=== PATIENT | female | born 1990 | race Caucasian/White ===

== ENCOUNTER 2017-05-08 07:20 | Inpatient (IN) | payer BC ==
[2017-05-08] MEDS ORDERED: Misoprostol 100 MCG Tab RECTAL PRN (10:13)
[2017-05-08] MEDS ORDERED: Misoprostol 25 MCG (1/4 of 100 MCG) Tab VAG ONE (10:19)
--- NOTE | 2017-05-08 11:38 | PCM.SN ---
- Free Text/Narrative Note: 26-year-old 40 weeks here for induction. Checked her cervix she's /- 3. With the patient's permission after discussing risk and benefits. I placed Cytotec posterior fornix. And consider starting Pitocin 4 hours.
[2017-05-08] MEDS ORDERED: Oxytocin/Normal Saline 10 UNIT/1,000 ML BAG IV SCH (16:15)
[2017-05-08] MEDS: Sodium Chloride 0.9% 10 ML Syringe FLUSH PRN ×2 (16:34→16:35)
[2017-05-08] MEDS: Lactated Ringers 1,000 ML IV SCH (16:34)
[2017-05-09] MEDS: Lactated Ringers 1,000 ML IV SCH ×4 (00:36→20:47)
[2017-05-09] MEDS ORDERED: Ampicillin 2 GM in Sodium Chloride 0.9% 100 ML IV ONE (07:14)
--- NOTE | 2017-05-09 09:13 | PCM.SN ---
- Free Text/Narrative Note: Cervix is 4 cm/80-90% effaced--2 with a bulging bag of membranes. Artificial rupture of membranes was done with clear fluid. Patient will continue on Pitocin and epidural when she is uncomfortable. Vaginal delivery anticipated. She is group B positive and ampicillin per protocols running IV.
[2017-05-09] MEDS ORDERED: FENTANYL EPIDUR ONE (09:15)
[2017-05-09] MEDS ORDERED: fentaNYL 100 MCG/2 ML SDV EPIDUR ONE (09:15)
[2017-05-09] MEDS ORDERED: ROPIVACAINE EPIDUR ONE (09:15)
[2017-05-09] MEDS ORDERED: diphenhydrAMINE 50 MG/ML SDV IVPUSH PRN (11:18)
[2017-05-09] MEDS ORDERED: ePHEDrine 50 MG/ML SDV IVPUSH PRN ×2 (11:18→19:41)
[2017-05-09] MEDS ORDERED: Naloxone 0.4 MG/ML SDV IVPUSH PRN ×3 (11:18→19:54)
[2017-05-09] MEDS ORDERED: Promethazine 25 MG/ML SDV IV PRN (11:18)
[2017-05-09] MEDS ORDERED: Naloxone 0.4 MG in Sodium Chloride 0.9% 100 ML IV PRN (11:18)
[2017-05-09] MEDS ORDERED: hydrOXYzine HCl 50 MG/ML SDV IM PRN ×2 (11:18)
[2017-05-09] MEDS ORDERED: Ondansetron 4 MG/2 ML SDV IVPUSH PRN ×2 (11:36→19:54)
[2017-05-09] MEDS ORDERED: Citric Acid/Sodium Citrate Solution 30 ML Cup PO ONE (18:21)
[2017-05-09] MEDS ORDERED: Scopolamine 1.5 MG Transdermal Patch TOP ONE (18:23)
--- NOTE | 2017-05-09 18:26 | PCM.SN ---
- Free Text/Narrative Note: Patient has been pushing for 3 hours. Patient was tired and there is late decelerations so we decided with the patient's permission to use the mighty Vac. Skin benefits explained. Estimation weight of the baby's. I tried to pull the baby's to several contractions and the head which is go right back up and there continue to be late decelerations. It appeared to be futile so we will call Dr. Perez and the surgical crew and proceed with a .
[2017-05-09] MEDS ORDERED: Scopolamine 1.5 MG Transdermal Patch ONE (18:31)
[2017-05-09] MEDS ORDERED: Citric Acid/Sodium Citrate Solution 30 ML Cup ONE (18:32)
--- NOTE | 2017-05-09 18:40 | PCM.HP ---
H&P History of Present Illness - General Date of Service: 05/09/17 Admit Problem/Dx: Admission Diagnosis/Problem Admission Diagnosis/Problem Source of Information: Patient History Limitations: Reports: No Limitations - History of Present Illness Initial Comments - Free Text/Narative: This a 26-year-old EDC 05/08/17. Came in for induction had Cytotec yesterday than Pitocin. The doctor was ill so we stop Pitocin at 10 PM and restart at 6 AM this morning. She went to complete and then she was not able to push the baby out. We tried the mighty Vac and were not able to get the baby out. She has no concerns today. She has had her wisdom tooth appears had no bleeding dyscrasias. Uterine Pain Score (Numeric/FACES): 2 - Related Data Allergies/Adverse Reactions: Allergies Allergy/AdvReac Type Severity Reaction Status Date / Time No Known Allergies Allergy Verified 05/08/17 16:15 Home Medications: Home Meds Pnv No.95/Ferrous Fum/Folic AC [ Multivitamin Tablet] 1 each PO DAILY [History] Past Medical History PER DIEM PHYSICAL THERAPIST ASSISTANT History: Reports: Psychiatric History: Reports: Depression Other Psychiatric History: has been on meds in past approx 5 yrs ago - Past Surgical History HEENT Surgical History: Reports: Oral Surgery Social & Family History - Family History Family Medical History: Noncontributory - Tobacco Use Smoking Status *Q: Never Smoker Second Hand Smoke Exposure: No - Caffeine Use Caffeine Use: Reports: Coffee, Soda - Recreational Drug Use Recreational Drug Use: No H&P Review of Systems - Review of Systems: Review Of Systems: See Below General: Reports: No Symptoms HEENT: Reports: No Symptoms Pulmonary: Reports: No Symptoms Cardiovascular: Reports: No Symptoms Gastrointestinal: Reports: No Symptoms Genitourinary: Denies: Dysuria, Frequency, Burning, Pain Musculoskeletal: Reports: No Symptoms Skin: Reports: No Symptoms Psychiatric: Reports: No Symptoms Neurological: Reports: No Symptoms Hematologic/Lymphatic: Reports: No Symptoms Immunologic: Reports: No Symptoms Exam - Exam Exam: See Below - Vital Signs Vital Signs: Last Vital Signs Temp 98 F 05/09/17 10:40 Pulse 78 05/09/17 18:00 Resp 18 05/09/17 08:16 BP 123/62 05/09/17 18:00 Pulse Ox 100 02/10/18 09:32 Weight: 194 lb - Exam General: Alert, Oriented HEENT: PERRLA, Hearing Intact, Nares Patent, Posterior Pharynx Clear, TMs Clear Neck: Supple, Trachea Midline. No: Thyromegaly Lungs: Clear to Auscultation, Normal Respiratory Effort. No: Crackles, Rales, Rhonchi Cardiovascular: Regular Rate, Regular Rhythm, Normal S1, Normal S2. No: Systolic Murmur, Diastolic Murmur GI/Abdominal Exam: Normal Bowel Sounds, Non-Tender, No Organomegaly, No Distention, No Abnormal Bruit, No Mass, Other (Gravid) (Female) Exam: Normal External Exam, Normal Bimanual Exam, Other (In labor) Extremities: Normal Inspection, Normal Range of Motion, Non-Tender, No Pedal Edema, Normal Capillary Refill Skin: Warm, Dry, Intact Neurological: Strength Equal Bilateral, Normal Gait, Normal Speech, Normal Tone Neuro Extensive - Mental Status: Alert, Oriented x3, Normal Mood/Affect, Normal Cognition, Memory Intact Neuro Extensive - Motor, Sensory, Reflexes: Normal Gait Psychiatric: Alert, Normal Affect, Normal Mood *Q Meaningful Use (ADM) - VTE *Q VTE Criteria *Q: - Stroke *Q Stroke Criteria *Q: - AMI *Q AMI Criteria *Q: - Problem List (1) Labor and delivery complicated by stress SNOMED Code(s): 353229237 ICD Code: O77.9 - LABOR AND DELIVERY COMPLICATED BY STRESS, UNSPECIFIED Status: Acute Current Visit: Yes Problem List Initiated/Reviewed/Updated: Yes Orders Last 24hrs: Active Orders 24 hr Category Date Time Status Admission Status [Patient Status] [ADT] Routine ADT 05/08/17 18:00 Active Urinary Catheter Assessment [RC] QSHIFT Care 05/09/17 13:30 Active Urinary Catheter Insertion [Insert Urinary Catheter] [ Care 05/09/17 13:30 Ordered OM.PC] Q24H CBC WITH AUTO DIFF [HEME] Routine Lab 05/09/17 18:12 Ordered TYPE AND SCREEN [BBK] Routine Lab 05/09/17 18:13 Ordered Ampicillin 1,000 mg Med 05/09/17 11:00 Active Sodium Chloride 0.9% [Normal Saline] 50 ml IV Q4H Naloxone [Narcan] Med 05/09/17 11:18 Active 0.1 mg IVPUSH ASDIRECTED PRN Naloxone [Narcan] 0.4 mg Med 05/09/17 11:18 Active Sodium Chloride 0.9% [Normal Saline] 100 ml IV ASDIRECTED Ondansetron [Zofran] Med 05/09/17 11:36 Active 4 mg IVPUSH Q4H PRN Promethazine [Phenergan] Med 05/09/17 11:18 Active 6.25 - 12.5 mg IV Q4H PRN diphenhydrAMINE [Benadryl] Med 05/09/17 11:18 Active 25 mg IVPUSH ASDIRECTED PRN ePHEDrine [ePHEDrine Sulfate] Med 05/09/17 11:18 Active 5 mg IVPUSH ASDIRECTED PRN hydrOXYzine HCl [Vistaril] Med 05/09/17 11:18 Active 0 mg IM Q4H PRN hydrOXYzine HCl [Vistaril] Med 05/09/17 11:18 Active 0 mg IM Q6H PRN Medication Orders Diphenhydramine HCl (Benadryl) 25 mg IVPUSH ASDIRECTED PRN PRN Reason: PRURITUS Ephedrine Sulfate (Ephedrine Sulfate) 5 mg IVPUSH ASDIRECTED PRN PRN Reason: HYPOTENSION Hydroxyzine HCl (Vistaril) 0 mg IM Q6H PRN PRN Reason: PRURITIS Hydroxyzine HCl (Vistaril) 0 mg IM Q4H PRN PRN Reason: N/V Lactated Ringer's (Ringers, Lactated) 1,000 mls @ 125 mls/hr IV ASDIRECTED BELKIS Last Admin: 05/09/17 10:29 Dose: 125 mls/hr Infusion: 05/09/17 10:29 Dose: 125 mls/hr Admin: 05/09/17 08:51 Dose: 125 mls/hr Infusion: 05/09/17 08:36 Dose: 125 mls/hr Admin: 05/09/17 00:36 Dose: 125 mls/hr Infusion: 05/09/17 00:34 Dose: 125 mls/hr Admin: 05/08/17 16:34 Dose: 125 mls/hr Oxytocin/Sodium Chloride (Pitocin In Ns 10 Units/1,000 Ml) 10 unit in 1,000 mls @ 12 mls/hr IV TITRATE BELKIS; 2 MUNITS/MIN PRN Reason: Protocol Last Titration: 05/09/17 11:43 Dose: 0 munits/min, 0 mls/hr Titration: 05/09/17 11:39 Dose: 4 munits/min, 24 mls/hr Titration: 05/09/17 11:10 Dose: 8 munits/min, 48 mls/hr Titration: 05/09/17 10:30 Dose: 6 munits/min, 36 mls/hr Titration: 05/09/17 06:30 Dose: 4 munits/min, 24 mls/hr Titration: 05/09/17 06:00 Dose: 2 munits/min, 12 mls/hr Titration: 05/08/17 22:00 Dose: 0 munits/min, 0 mls/hr Titration: 05/08/17 18:30 Dose: 8 munits/min, 48 mls/hr Titration: 05/08/17 17:46 Dose: 6 munits/min, 36 mls/hr Titration: 05/08/17 17:15 Dose: 4 munits/min, 24 mls/hr Admin: 05/08/17 16:35 Dose: 2 munits/min, 12 mls/hr Ampicillin Sodium 1,000 mg/ (Sodium Chloride) 50 mls @ 100 mls/hr IV Q4H BELKIS Last Admin: 05/09/17 15:13 Dose: 100 mls/hr Admin: 05/09/17 11:07 Dose: 100 mls/hr Naloxone HCl 0.4 mg/ Sodium (Chloride) 101 mls @ 25 mls/hr IV ASDIRECTED PRN PRN Reason: PER ORDER OF ANESTHESIA Naloxone HCl (Narcan) 0.1 mg IVPUSH ASDIRECTED PRN PRN Reason: RESPIRATORY STATUS Ondansetron HCl (Zofran) 4 mg IVPUSH Q4H PRN PRN Reason: N/V Promethazine HCl (Phenergan) 6.25 - 12.5 mg IV Q4H PRN PRN Reason: NAUSEA AND VOMITING Sodium Chloride (Saline Flush) 10 ml FLUSH ASDIRECTED PRN PRN Reason: Keep Vein Open Last Admin: 05/08/17 16:35 Dose: 10 ml Admin: 05/08/17 16:34 Dose: 10 ml Assessment/Plan Comment:: 1. Patient attempted vaginal delivery including using the mighty Vac. 2. Will proceed to . Patient is okay for surgery. Epidural also is already in place.
[2017-05-09] MEDS ORDERED: Morphine PF 10 MG/10 ML SDV EPIDUR ONE (18:52)
[2017-05-09] MEDS ORDERED: Dexamethasone 4 MG/ML 5 ML MDV IVPUSH ONE (18:52)
[2017-05-09] MEDS ORDERED: Ondansetron 4 MG/2 ML SDV IVPUSH ONE (18:52)
[2017-05-09] MEDS ORDERED: Oxytocin 10 Units/1 ML SDV IV ONE (18:52)
[2017-05-09] MEDS ORDERED: fentaNYL 100 MCG/2 ML SDV IV ONE (18:52)
[2017-05-09] MEDS ORDERED: Ketorolac 30 MG/ML SDV IVPUSH ONE (18:52)
[2017-05-09] MEDS ORDERED: Lidocaine 2% 10 ML Amp INJECT ONE (18:52)
--- NOTE | 2017-05-09 19:03 | PREOP ---
ADMISSION DATE: 05/08/2017 Rebekah is a 26-year-old white female whose estimated date of confinement was today. She is a G1, P0 with failure to progress. She is ABO, Rh positive, antibody negative. Apparently, she has been pushing all day and has had failure to progress, and section appears to be indicated according to her attending, Dr. Higginbotham. Procedure and risks of the section were explained to the patient to include bleeding, infection, injury to baby, and/or injury to bowel, bladder, blood vessels, as well as ureter. The patient and her expressed understanding and they asked us to proceed. /[id number] JOSE/MARIA ISABEL
--- NOTE | 2017-05-09 19:48 | PCM.OPNOTE ---
- General Post-Op/Procedure Note Date of Surgery/Procedure: 05/09/17 Operative Procedure(s): c section Findings: term male infant apgars 9/9 CAM Pre Op Diagnosis: failure to progress Post-Op Diagnosis: Same Anesthesia Technique: Epidural Primary Surgeon: Lex Perez Secondary Surgeon: Misha Higginbotham Anesthesia Provider: Rosibel Agrawal Pathology: placenta Fluid Replacement, Intraop: 500 Output, Urine Amount: 75 EBL in mLs: 500 Complications: None Condition: Good Free Text/Narrative:: Intake & Output 05/09/17 05/09/17 05/09/17 06:59 14:59 22:59 Intake Total 100 3671 Output Total 200 Balance -100 3671 see dictation
[2017-05-09] MEDS ORDERED: diphenhydrAMINE 50 MG/ML SDV IV PRN (19:54)
[2017-05-09] MEDS ORDERED: Nalbuphine 10 MG/1 ML Vial IVPUSH PRN (19:54)
[2017-05-09] MEDS: Ketorolac 15 MG/ML SDV IVPUSH PRN (22:36)
[2017-05-10] MEDS: Lactated Ringers 1,000 ML IV SCH ×3 (00:05→08:57)
--- NOTE | 2017-05-10 01:43 | OR ---
DATE OF OPERATION: 05/09/2017 SURGEON: Lex Perez MD [employer]ER SURGEON: Misha Higginbotham MD. PROCEDURE PERFORMED: section. PREOPERATIVE DIAGNOSIS: Failure to progress. POSTOPERATIVE DIAGNOSIS: Failure to progress. INDICATIONS FOR PROCEDURE: This is a 26-year-old white female, G1, P0, presents earlier today. During the course of her labor, she had failure to progress and we were unable to deliver the infant transvaginally. section was felt to be indicated by Dr. Misha Higginbotham and she was offered and accepted same. INTRAOPERATIVE FINDINGS: Term male infant, CAM, score of 9 and 9, delivered without difficulty. EBL: Approximately 500 mL. DESCRIPTION OF OPERATION: After an excellent epidural anesthetic was administered, the patient was prepped and draped in usual sterile manner. Curvilinear incision was made approximately 1 cm above the symphysis pubis and just along the hairline with a #10 scalpel blade. The underlying subcu fat was divided using electrocautery and several branches of the superficial inferior epigastric veins were also cauterized using electrocautery. The overlying fascia was exposed on the rectus muscle. Incision was made through the fascia and then our incision was carried out using electrocautery both medially and laterally cutting through the medial aspect of the internal and external oblique muscles. Using Romeo clamps, the rectus sheath was grasped, retracted superiorly, a plane was developed using blunt dissection and electrocautery. The process was repeated inferiorly down to the symphysis pubis. The peritoneum was then grasped with two hemostats, and the abdominal cavity was entered. A bladder flap was developed using Metzenbaum sutures and the bladder was retracted inferiorly. Incision was then made through the uterus, and the uterus was developed. Incision was made through the uterus and was widened bluntly. Hand was inserted into the uterus and the head was delivered. A nuchal cord was reduced. Anterior shoulder and then posterior shoulder were delivered and then the remainder of the child. The oropharynx and nasopharynx were suctioned. The cord was clamped, divided, and the child was passed off the field. Cord blood sample was obtained. The placenta was then gently removed from the uterine cavity and the uterus just was delivered outside of the body. The Pitocin drip was started, and the inside of the uterus was wiped down using a lap sponge. The uterine incision was then closed in two layers with 0 Vicryl, with first being a running locking stitch followed by a running Lembert stitch. After assuring excellent hemostasis, the pouch of Steven was irrigated as well as the left and the right colonic gutters. The fascial defect was then closed with a running 0 Vicryl after irrigation. The subcu fat was closed with a running 3-0 Vicryl and the skin was closed with continuation of a running 3-0 Vicryl. Dressing was applied. Needle, sponge, and instrument counts were reported as correct. The patient was taken to recovery room in good condition. /[id number] /MODDella
[2017-05-10] MEDS: diphenhydrAMINE 50 MG/ML SDV IVPUSH PRN ×2 (08:04→21:27)
--- NOTE | 2017-05-10 08:55 | PCM.PNPP ---
- General Info Date of Service: 05/10/17 Functional Status: Reports: Pain Controlled, Tolerating Diet, Urinating - Review of Systems Pulmonary: Reports: No Symptoms Cardiovascular: Reports: No Symptoms Gastrointestinal: Denies: Flatus Genitourinary: Reports: No Symptoms - Patient Data Vital Signs - Most Recent: Last Vital Signs Temp 36.9 C 05/09/17 23:31 Pulse 76 05/09/17 23:31 Resp 17 05/09/17 23:31 BP 106/60 05/09/17 23:31 Pulse Ox 98 05/09/17 22:00 Weight - Most Recent: 87.997 kg I&O - Last 24 Hours: Intake & Output 05/09/17 05/10/17 05/10/17 22:59 06:59 14:59 Intake Total 4644 1377 Output Total 275 2000 Balance 4369 -653 Lab Results - Last 24 Hours: Laboratory Results - last 24 hr 05/09/17 05/09/17 05/10/17 Range/Units 18:34 18:34 06:30 WBC 14.4 H 15.6 H (4.5-12.0) X10-3/uL RBC 4.10 3.65 (3.23-5.20) x10(6)uL Hgb 12.5 10.9 L (11.5-15.5) g/dL Hct 36.6 32.2 (30.0-51.3) % MCV 89.3 88.2 (80-96) fL MCH 30.5 29.9 (27.7-33.6) pg MCHC 34.1 33.9 (32.2-35.4) g/dL RDW 11.7 12.0 (11.5-15.5) % Plt Count 235 214 (125-369) X10(3)uL MPV 6.5 L 6.9 L (7.4-10.4) fL Neut % (Auto) 88.9 H (46-82) % Lymph % (Auto) 6.0 L (13-37) % Louisa % (Auto) 4.8 (4-12) % Eos % (Auto) 0 L (1.0-5.0) % Baso % (Auto) 0 (0-2) % Neut # (Auto) 12.8 H (1.6-8.3) # Lymph # (Auto) 0.9 (0.6-5.0) # Louisa # (Auto) 0.7 (0.0-1.3) # Eos # (Auto) 0.0 (0.0-0.8) # Baso # (Auto) 0.0 (0.0-0.2) # Add Manual Diff Yes Neutrophils % (Manual) 90 H (46-82) % Lymphocytes % (Manual) 4 L (13-37) % Monocytes % (Manual) 6 (4-12) % Blood Type O POSITIVE Gel Antibody Screen Negative Med Orders - Current: Current Medications Diphenhydramine HCl (Benadryl) 25 mg IVPUSH Q6H PRN PRN Reason: Itching or Nausea Last Admin: 05/10/17 08:04 Dose: 25 mg Diphenhydramine HCl (Benadryl) 25 mg IV ONETIME PRN PRN Reason: Pruritus Hydroxyzine HCl (Vistaril) 0 mg IM Q6H PRN PRN Reason: PRURITIS Hydroxyzine HCl (Vistaril) 0 mg IM Q4H PRN PRN Reason: N/V Lactated Ringer's (Ringers, Lactated) 1,000 mls @ 250 mls/hr IV ASDIRECTED BELKIS Last Admin: 05/10/17 04:11 Dose: 125 mls/hr Ketorolac Tromethamine (Toradol) 15 mg IVPUSH Q6H PRN PRN Reason: Pain Stop: 05/14/17 19:57 Last Admin: 05/09/17 22:36 Dose: 15 mg Morphine Sulfate (Morphine) 2 mg IVPUSH Q1H PRN PRN Reason: Pain Nalbuphine HCl (Nubain) 10 mg IVPUSH Q1H PRN PRN Reason: Pruritus Naloxone HCl (Narcan) 0.1 mg IVPUSH ASDIRECTED PRN PRN Reason: RESPIRATORY STATUS Naloxone HCl (Narcan) 0.1 mg IVPUSH ONETIME PRN PRN Reason: Respiratory Depression Naloxone HCl (Narcan) 0.1 mg IVPUSH ONETIME PRN PRN Reason: Oversedation Ondansetron HCl (Zofran) 4 mg IVPUSH Q4H PRN PRN Reason: N/V Promethazine HCl (Phenergan) 6.25 - 12.5 mg IV Q4H PRN PRN Reason: NAUSEA AND VOMITING Sodium Chloride (Saline Flush) 10 ml FLUSH ASDIRECTED PRN PRN Reason: Keep Vein Open Last Admin: 05/08/17 16:35 Dose: 10 ml Discontinued Medications Ampicillin Sodium (Ampicillin) Confirm Administered Dose 2,000 mg .ROUTE .STK- MED ONE Stop: 05/09/17 07:16 Last Admin: 05/09/17 07:33 Dose: Not Given Citric Acid/Sodium Citrate (Bicitra Solution) 30 ml PO ONETIME ONE Stop: 05/09/17 18:22 Last Admin: 05/09/17 18:37 Dose: 30 ml Citric Acid/Sodium Citrate (Bicitra Solution) Confirm Administered Dose 30 ml .ROUTE .STK-MED ONE Stop: 05/09/17 18:33 Last Admin: 05/09/17 20:49 Dose: Not Given Diphenhydramine HCl (Benadryl) 25 mg IVPUSH ASDIRECTED PRN PRN Reason: PRURITUS Ephedrine Sulfate (Ephedrine Sulfate) 5 mg IVPUSH ASDIRECTED PRN PRN Reason: HYPOTENSION Oxytocin/Sodium Chloride (Pitocin In Ns 10 Units/1,000 Ml) 10 unit in 1,000 mls @ 12 mls/hr IV TITRATE BELKIS; 2 MUNITS/MIN PRN Reason: Protocol Last Titration: 05/09/17 11:43 Dose: 0 munits/min, 0 mls/hr Ampicillin Sodium 2 gm/ Sodium (Chloride) 100 mls @ 200 mls/hr IV ONETIME ONE Stop: 05/09/17 07:43 Last Admin: 05/09/17 07:28 Dose: 200 mls/hr Ampicillin Sodium 1,000 mg/ (Sodium Chloride) 50 mls @ 100 mls/hr IV Q4H BELKIS Last Admin: 05/09/17 18:42 Dose: 100 mls/hr Naloxone HCl 0.4 mg/ Sodium (Chloride) 101 mls @ 25 mls/hr IV ASDIRECTED PRN PRN Reason: PER ORDER OF ANESTHESIA Misoprostol (Cytotec) 25 mcg VAG ONETIME ONE Stop: 05/08/17 10:20 Last Admin: 05/08/17 11:04 Dose: 25 mcg Ondansetron HCl (Zofran) 4 mg IVPUSH Q6H PRN PRN Reason: Nausea/Vomiting Scopolamine (Transderm-Scop) 1.5 mg TOP ONETIME ONE Stop: 05/09/17 18:24 Last Admin: 05/09/17 18:37 Dose: 1.5 mg Scopolamine (Transderm-Scop) Confirm Administered Dose 1.5 mg .ROUTE .STK-MED ONE Stop: 05/09/17 18:32 Last Admin: 05/09/17 18:35 Dose: Not Given - Interaction Disposition, : in Room with Family Support Person: - Recovery Exam Fundal Tone: Firm Fundal Level: At Umbilicus Fundal Placement: Midline Lochia Amount: Small Lochia Color: Rubra/Red Perineum Description: Intact, Minimal Bruising/Swelling, Edematous Episiotomy/Laceration: None Bladder Status: Indwelling Catheter in Place Urinary Elimination: Indwelling Catheter - Exam General: Alert, Oriented, Cooperative, No Acute Distress Lungs: Clear to Auscultation, Normal Respiratory Effort Cardiovascular: Regular Rate, Regular Rhythm GI/Abdominal Exam: Normal Bowel Sounds, Soft, No Organomegaly, No Distention Skin: Warm, Dry, Intact Wound/Incisions: Dressing Dry and Intact - Problem List & Annotations (1) S/P section SNOMED Code(s): 162554735 Code(s): Z98.891 - HISTORY OF UTERINE SCAR FROM PREVIOUS SURGERY Status: Acute Current Visit: Yes - Problem List Review Problem List Initiated/Reviewed/Updated: Yes - My Orders Last 24 Hours: My Active Orders 05/09/17 19:41 Ambulate [RC] PER UNIT ROUTINE Intake and Output [RC] QSHIFT Wound Care [RC] QSHIFT Naloxone [Narcan] 0.1 mg IVPUSH ONETIME PRN diphenhydrAMINE [Benadryl] 25 mg IVPUSH Q6H PRN Assess Lochia [WOMSER] Per Unit Routine 05/09/17 19:42 Communication Order [RC] Per Unit Routine Communication Order [RC] Per Unit Routine Communication Order [RC] Per Unit Routine Assess Uterine Involution [WOMSER] Per Unit Routine 05/09/17 19:43 RT Incentive Spirometry [RC] Q2HWA Heat Therapy [OM.PC] Per Unit Routine Ice Therapy [OM.PC] Per Unit Routine 05/10/17 Breakfast Clear Liquid Diet [DIET] - Assessment Assessment:: doing very well this am u/o is excellent. has very good bowel sounds. - Plan Plan:: will d/c martinez catheter this am. decrease I.V. fluid rate to 75 ml hr
[2017-05-10] MEDS: Ketorolac 15 MG/ML SDV IVPUSH PRN (11:15)
[2017-05-10] MEDS: Morphine 2 MG/ML Syringe IVPUSH PRN ×3 (17:19→20:24)
[2017-05-10] MEDS ORDERED: Bisacodyl 10 MG Supp RECTAL ONE (18:42)
[2017-05-10] MEDS: Ketorolac 30 MG/ML SDV IVPUSH PRN (20:13)
[2017-05-11] MEDS: Ketorolac 30 MG/ML SDV IVPUSH PRN (01:58)
--- NOTE | 2017-05-11 07:43 | PCM.PNPP ---
- General Info Date of Service: 05/11/17 - Review of Systems General: Reports: No Symptoms Pulmonary: Reports: No Symptoms Cardiovascular: Reports: No Symptoms Gastrointestinal: Reports: No Symptoms, Flatus, Other (bowel movement) - Patient Data Vital Signs - Most Recent: Last Vital Signs Temp 36.7 C 05/10/17 12:19 Pulse 75 05/10/17 12:19 Resp 18 05/10/17 18:00 BP 98/57 L 05/10/17 12:19 Pulse Ox 94 L 05/10/17 12:19 Weight - Most Recent: 87.997 kg I&O - Last 24 Hours: Intake & Output 05/10/17 05/11/17 05/11/17 22:59 06:59 14:59 Intake Total 1079 800 Output Total 1200 950 Balance -121 -150 Med Orders - Current: Current Medications Diphenhydramine HCl (Benadryl) 25 mg IVPUSH Q6H PRN PRN Reason: Itching or Nausea Last Admin: 05/10/17 21:27 Dose: 25 mg Diphenhydramine HCl (Benadryl) 25 mg IV ONETIME PRN PRN Reason: Pruritus Hydroxyzine HCl (Vistaril) 0 mg IM Q6H PRN PRN Reason: PRURITIS Last Admin: 05/10/17 12:09 Dose: 25 mg Hydroxyzine HCl (Vistaril) 0 mg IM Q4H PRN PRN Reason: N/V Lactated Ringer's (Ringers, Lactated) 1,000 mls @ 75 mls/hr IV ASDIRECTED BELKIS Last Admin: 05/10/17 08:57 Dose: 75 mls/hr Morphine Sulfate (Morphine) 2 mg IVPUSH Q1H PRN PRN Reason: Pain Last Admin: 05/10/17 20:24 Dose: 2 mg Nalbuphine HCl (Nubain) 10 mg IVPUSH Q1H PRN PRN Reason: Pruritus Naloxone HCl (Narcan) 0.1 mg IVPUSH ASDIRECTED PRN PRN Reason: RESPIRATORY STATUS Naloxone HCl (Narcan) 0.1 mg IVPUSH ONETIME PRN PRN Reason: Respiratory Depression Naloxone HCl (Narcan) 0.1 mg IVPUSH ONETIME PRN PRN Reason: Oversedation Ondansetron HCl (Zofran) 4 mg IVPUSH Q4H PRN PRN Reason: N/V Promethazine HCl (Phenergan) 6.25 - 12.5 mg IV Q4H PRN PRN Reason: NAUSEA AND VOMITING Sodium Chloride (Saline Flush) 10 ml FLUSH ASDIRECTED PRN PRN Reason: Keep Vein Open Last Admin: 05/08/17 16:35 Dose: 10 ml Discontinued Medications Ampicillin Sodium (Ampicillin) Confirm Administered Dose 2,000 mg .ROUTE .STK- MED ONE Stop: 05/09/17 07:16 Last Admin: 05/09/17 07:33 Dose: Not Given Bisacodyl (Dulcolax) 10 mg RECTAL ONETIME ONE Stop: 05/10/17 18:43 Last Admin: 05/10/17 19:07 Dose: 10 mg Citric Acid/Sodium Citrate (Bicitra Solution) 30 ml PO ONETIME ONE Stop: 05/09/17 18:22 Last Admin: 05/09/17 18:37 Dose: 30 ml Citric Acid/Sodium Citrate (Bicitra Solution) Confirm Administered Dose 30 ml .ROUTE .STK-MED ONE Stop: 05/09/17 18:33 Last Admin: 05/09/17 20:49 Dose: Not Given Diphenhydramine HCl (Benadryl) 25 mg IVPUSH ASDIRECTED PRN PRN Reason: PRURITUS Ephedrine Sulfate (Ephedrine Sulfate) 5 mg IVPUSH ASDIRECTED PRN PRN Reason: HYPOTENSION Oxytocin/Sodium Chloride (Pitocin In Ns 10 Units/1,000 Ml) 10 unit in 1,000 mls @ 12 mls/hr IV TITRATE BELKIS; 2 MUNITS/MIN PRN Reason: Protocol Last Titration: 05/09/17 11:43 Dose: 0 munits/min, 0 mls/hr Ampicillin Sodium 2 gm/ Sodium (Chloride) 100 mls @ 200 mls/hr IV ONETIME ONE Stop: 05/09/17 07:43 Last Admin: 05/09/17 07:28 Dose: 200 mls/hr Ampicillin Sodium 1,000 mg/ (Sodium Chloride) 50 mls @ 100 mls/hr IV Q4H BELKIS Last Admin: 05/09/17 18:42 Dose: 100 mls/hr Naloxone HCl 0.4 mg/ Sodium (Chloride) 101 mls @ 25 mls/hr IV ASDIRECTED PRN PRN Reason: PER ORDER OF ANESTHESIA Ketorolac Tromethamine (Toradol) 15 mg IVPUSH Q6H PRN PRN Reason: Pain Stop: 05/14/17 19:57 Last Admin: 05/10/17 11:15 Dose: 15 mg Ketorolac Tromethamine (Toradol) 30 mg IVPUSH Q6H PRN PRN Reason: Pain Stop: 05/15/17 18:42 Last Admin: 05/11/17 01:58 Dose: 30 mg Misoprostol (Cytotec) 25 mcg VAG ONETIME ONE Stop: 05/08/17 10:20 Last Admin: 05/08/17 11:04 Dose: 25 mcg Ondansetron HCl (Zofran) 4 mg IVPUSH Q6H PRN PRN Reason: Nausea/Vomiting Scopolamine (Transderm-Scop) 1.5 mg TOP ONETIME ONE Stop: 05/09/17 18:24 Last Admin: 05/09/17 18:37 Dose: 1.5 mg Scopolamine (Transderm-Scop) Confirm Administered Dose 1.5 mg .ROUTE .STK-MED ONE Stop: 05/09/17 18:32 Last Admin: 05/09/17 18:35 Dose: Not Given - Infant Interaction Disposition, : in Room with Family Support Person: - Recovery Exam Fundal Tone: Firm Fundal Level: At Umbilicus Fundal Placement: Midline Lochia Amount: Small Lochia Color: Rubra/Red Perineum Description: Intact, Minimal Bruising/Swelling, Edematous Episiotomy/Laceration: None Bladder Status: Indwelling Catheter in Place Urinary Elimination: Indwelling Catheter - Exam General: Alert, Oriented, Cooperative, No Acute Distress Lungs: Clear to Auscultation, Normal Respiratory Effort Cardiovascular: Regular Rate, Regular Rhythm GI/Abdominal Exam: Normal Bowel Sounds, Soft, Non-Tender Wound/Incisions: Healing Well, No Drainage - Problem List & Annotations (1) S/P section SNOMED Code(s): 167213154 Code(s): Z98.891 - HISTORY OF UTERINE SCAR FROM PREVIOUS SURGERY Status: Acute Current Visit: Yes - Problem List Review Problem List Initiated/Reviewed/Updated: Yes - My Orders Last 24 Hours: My Active Orders 05/10/17 Dinner Regular Diet [DIET] 05/11/17 07:40 Acetaminophen/HYDROcodone [[place] 325-5 MG] 1 tab PO Q4H PRN Ibuprofen [Motrin] 600 mg PO Q6H PRN Convert IV to Saline Lock [OM.PC] Routine - Assessment Assessment:: POD#2 anticipate discharge later today - Plan Plan:: saline lock iv po pain medications
[2017-05-11] MEDS: Acetaminophen/HYDROcodone 325-5 MG Tab PO PRN ×3 (07:55→19:20)
[2017-05-11] MEDS: Ibuprofen 600 MG Tab PO PRN ×3 (09:43→22:38)
[2017-05-12] MEDS: Acetaminophen/HYDROcodone 325-5 MG Tab PO PRN ×4 (02:11→21:32)
[2017-05-12] MEDS: Ibuprofen 600 MG Tab PO PRN (06:30)
[2017-05-12] MEDS ORDERED: Sodium Chloride 0.9% 10 ML Syringe FLUSH PRN (09:04)
[2017-05-12] MEDS ORDERED: Morphine 4 MG/ML Syringe IVPUSH ONE (09:05)
--- NOTE | 2017-05-12 09:11 | PCM.PNPP ---
- General Info Date of Service: 05/12/17 Functional Status: Reports: Pain Controlled (poorly controlled ), Tolerating Diet - Review of Systems Pulmonary: Reports: No Symptoms Cardiovascular: Reports: No Symptoms Gastrointestinal: Reports: Abdominal Pain - Patient Data Vital Signs - Most Recent: Last Vital Signs Temp 37.1 C 05/12/17 02:10 Pulse 60 05/12/17 02:10 Resp 18 05/12/17 02:10 BP 98/64 05/12/17 02:10 Pulse Ox 99 05/12/17 02:10 Weight - Most Recent: 87.997 kg I&O - Last 24 Hours: Intake & Output 05/11/17 05/12/17 05/12/17 22:59 06:59 14:59 Intake Total 650 Output Total 600 Balance 50 Med Orders - Current: Current Medications Diphenhydramine HCl (Benadryl) 25 mg IVPUSH Q6H PRN PRN Reason: Itching or Nausea Last Admin: 05/10/17 21:27 Dose: 25 mg Diphenhydramine HCl (Benadryl) 25 mg IV ONETIME PRN PRN Reason: Pruritus Hydroxyzine HCl (Vistaril) 0 mg IM Q6H PRN PRN Reason: PRURITIS Last Admin: 05/10/17 12:09 Dose: 25 mg Hydroxyzine HCl (Vistaril) 0 mg IM Q4H PRN PRN Reason: N/V Lactated Ringer's (Ringers, Lactated) 1,000 mls @ 75 mls/hr IV ASDIRECTED BELKIS Last Admin: 05/10/17 08:57 Dose: 75 mls/hr Morphine Sulfate (Morphine) 2 mg IVPUSH Q1H PRN PRN Reason: Pain Last Admin: 05/10/17 20:24 Dose: 2 mg Nalbuphine HCl (Nubain) 10 mg IVPUSH Q1H PRN PRN Reason: Pruritus Naloxone HCl (Narcan) 0.1 mg IVPUSH ASDIRECTED PRN PRN Reason: RESPIRATORY STATUS Naloxone HCl (Narcan) 0.1 mg IVPUSH ONETIME PRN PRN Reason: Respiratory Depression Naloxone HCl (Narcan) 0.1 mg IVPUSH ONETIME PRN PRN Reason: Oversedation Ondansetron HCl (Zofran) 4 mg IVPUSH Q4H PRN PRN Reason: N/V Promethazine HCl (Phenergan) 6.25 - 12.5 mg IV Q4H PRN PRN Reason: NAUSEA AND VOMITING Sodium Chloride (Saline Flush) 10 ml FLUSH ASDIRECTED PRN PRN Reason: Keep Vein Open Last Admin: 05/08/17 16:35 Dose: 10 ml Discontinued Medications Hydrocodone Bitart/Acetaminophen ([place] 325-5 Mg) 1 tab PO Q4H PRN PRN Reason: Pain Last Admin: 05/12/17 02:11 Dose: 1 tab Ampicillin Sodium (Ampicillin) Confirm Administered Dose 2,000 mg .ROUTE .STK- MED ONE Stop: 05/09/17 07:16 Last Admin: 05/09/17 07:33 Dose: Not Given Bisacodyl (Dulcolax) 10 mg RECTAL ONETIME ONE Stop: 05/10/17 18:43 Last Admin: 05/10/17 19:07 Dose: 10 mg Citric Acid/Sodium Citrate (Bicitra Solution) 30 ml PO ONETIME ONE Stop: 05/09/17 18:22 Last Admin: 05/09/17 18:37 Dose: 30 ml Citric Acid/Sodium Citrate (Bicitra Solution) Confirm Administered Dose 30 ml .ROUTE .STK-MED ONE Stop: 05/09/17 18:33 Last Admin: 05/09/17 20:49 Dose: Not Given Diphenhydramine HCl (Benadryl) 25 mg IVPUSH ASDIRECTED PRN PRN Reason: PRURITUS Ephedrine Sulfate (Ephedrine Sulfate) 5 mg IVPUSH ASDIRECTED PRN PRN Reason: HYPOTENSION Oxytocin/Sodium Chloride (Pitocin In Ns 10 Units/1,000 Ml) 10 unit in 1,000 mls @ 12 mls/hr IV TITRATE BELKIS; 2 MUNITS/MIN PRN Reason: Protocol Last Titration: 05/09/17 11:43 Dose: 0 munits/min, 0 mls/hr Ampicillin Sodium 2 gm/ Sodium (Chloride) 100 mls @ 200 mls/hr IV ONETIME ONE Stop: 05/09/17 07:43 Last Admin: 05/09/17 07:28 Dose: 200 mls/hr Ampicillin Sodium 1,000 mg/ (Sodium Chloride) 50 mls @ 100 mls/hr IV Q4H BELKIS Last Admin: 05/09/17 18:42 Dose: 100 mls/hr Naloxone HCl 0.4 mg/ Sodium (Chloride) 101 mls @ 25 mls/hr IV ASDIRECTED PRN PRN Reason: PER ORDER OF ANESTHESIA Ibuprofen (Motrin) 600 mg PO Q6H PRN PRN Reason: Pain Last Admin: 05/12/17 06:30 Dose: 600 mg Ketorolac Tromethamine (Toradol) 15 mg IVPUSH Q6H PRN PRN Reason: Pain Stop: 05/14/17 19:57 Last Admin: 05/10/17 11:15 Dose: 15 mg Ketorolac Tromethamine (Toradol) 30 mg IVPUSH Q6H PRN PRN Reason: Pain Stop: 05/15/17 18:42 Last Admin: 05/11/17 01:58 Dose: 30 mg Misoprostol (Cytotec) 25 mcg VAG ONETIME ONE Stop: 05/08/17 10:20 Last Admin: 05/08/17 11:04 Dose: 25 mcg Ondansetron HCl (Zofran) 4 mg IVPUSH Q6H PRN PRN Reason: Nausea/Vomiting Scopolamine (Transderm-Scop) 1.5 mg TOP ONETIME ONE Stop: 05/09/17 18:24 Last Admin: 05/09/17 18:37 Dose: 1.5 mg Scopolamine (Transderm-Scop) Confirm Administered Dose 1.5 mg .ROUTE .STK-MED ONE Stop: 05/09/17 18:32 Last Admin: 05/09/17 18:35 Dose: Not Given - Interaction Infant Disposition, : [place] in Room with Family Support Person: - Recovery Exam Fundal Tone: Firm Fundal Level: At Umbilicus Fundal Placement: Midline Lochia Amount: Small Lochia Color: Rubra/Red Perineum Description: Edematous Episiotomy/Laceration: None Bladder Status: Voiding Urinary Elimination: Voided - Exam General: Alert, Oriented, Mild Distress Lungs: Clear to Auscultation, Normal Respiratory Effort Cardiovascular: Regular Rate, Regular Rhythm GI/Abdominal Exam: Normal Bowel Sounds, Soft, Other (no marked tenderness but has a burning ) Skin: Warm, Dry Wound/Incisions: Healing Well, No Drainage. No: Erythema - Problem List & Annotations (1) S/P section SNOMED Code(s): 262422007 Code(s): Z98.891 - HISTORY OF UTERINE SCAR FROM PREVIOUS SURGERY Status: Acute Current Visit: Yes (2) Post-operative pain SNOMED Code(s): 172257912 Code(s): G89.18 - OTHER ACUTE POSTPROCEDURAL PAIN Status: Acute Current Visit: Yes - Problem List Review Problem List Initiated/Reviewed/Updated: Yes - My Orders Last 24 Hours: My Active Orders 05/12/17 09:04 Sodium Chloride 0.9% [Saline Flush] 10 ml FLUSH ASDIRECTED PRN Saline Lock Insert [OM.PC] Routine 05/12/17 09:05 Acetaminophen/HYDROcodone [[place] 325-5 MG] 2 tab PO Q4H PRN Morphine 4 mg IVPUSH ONETIME ONE 05/12/17 09:15 Acetaminophen/HYDROcodone [[place] 325-5 MG] 1 tab PO Q4H Ibuprofen [Motrin] 600 mg PO Q6H - Assessment Assessment:: POD#3 will need to get pain under control prn dosing schedule has not covered her discomfort. - Plan Plan:: One time dose of morphine iv motrin to scheduled hydrocodone to 1-2 scheduled. vistril
[2017-05-12] MEDS ORDERED: Ibuprofen 600 MG Tab PO SCH (09:15)
[2017-05-12] MEDS ORDERED: Morphine 4 MG/ML Syringe ONE (09:17)
[2017-05-12] MEDS ORDERED: Acetaminophen/HYDROcodone 325-5 MG Tab ONE (09:19)
[2017-05-12] MEDS ORDERED: Ibuprofen 600 MG Tab ONE (09:21)
[2017-05-12] MEDS: Acetaminophen/HYDROcodone 325-5 MG Tab PO SCH ×4 (09:31→21:33)
[2017-05-12] MEDS: Sodium Chloride 0.9% 10 ML Syringe FLUSH PRN ×2 (09:37→09:38)
[2017-05-12] MEDS: Ibuprofen 600 MG Tab PO SCH ×2 (12:20→18:35)
[2017-05-13] MEDS: Ibuprofen 600 MG Tab PO SCH ×2 (00:11→06:22)
[2017-05-13] MEDS: Acetaminophen/HYDROcodone 325-5 MG Tab PO PRN ×3 (01:00→09:10)
[2017-05-13] MEDS: Acetaminophen/HYDROcodone 325-5 MG Tab PO SCH ×3 (01:01→09:11)
--- NOTE | 2017-05-13 07:33 | PCM.PNPP ---
- General Info Date of Service: 05/13/17 Functional Status: Reports: Pain Controlled, Tolerating Diet, Ambulating - Review of Systems Pulmonary: Reports: No Symptoms Cardiovascular: Reports: No Symptoms Gastrointestinal: Reports: Constipation, Other (incisional pain left side. better. ) - Patient Data Vital Signs - Most Recent: Last Vital Signs Temp 36.6 C 05/13/17 00:15 Pulse 71 05/13/17 00:15 Resp 18 05/13/17 00:15 BP 96/64 05/13/17 00:15 Pulse Ox 98 05/13/17 00:15 Weight - Most Recent: 87.997 kg Med Orders - Current: Current Medications Hydrocodone Bitart/Acetaminophen ([place] 325-5 Mg) 2 tab PO Q4H PRN PRN Reason: Pain Last Admin: 05/13/17 05:03 Dose: 2 tab Hydrocodone Bitart/Acetaminophen ([place] 325-5 Mg) 1 tab PO Q4H BELKIS Last Admin: 05/13/17 05:04 Dose: Not Given Diphenhydramine HCl (Benadryl) 25 mg IVPUSH Q6H PRN PRN Reason: Itching or Nausea Last Admin: 05/10/17 21:27 Dose: 25 mg Diphenhydramine HCl (Benadryl) 25 mg IV ONETIME PRN PRN Reason: Pruritus Hydroxyzine HCl (Vistaril) 0 mg IM Q6H PRN PRN Reason: PRURITIS Last Admin: 05/10/17 12:09 Dose: 25 mg Hydroxyzine HCl (Vistaril) 0 mg IM Q4H PRN PRN Reason: N/V Ibuprofen (Motrin) 600 mg PO Q6H [facility] Last Admin: 05/13/17 06:22 Dose: 600 mg Morphine Sulfate (Morphine) 2 mg IVPUSH Q1H PRN PRN Reason: Pain Last Admin: 05/10/17 20:24 Dose: 2 mg Nalbuphine HCl (Nubain) 10 mg IVPUSH Q1H PRN PRN Reason: Pruritus Naloxone HCl (Narcan) 0.1 mg IVPUSH ASDIRECTED PRN PRN Reason: RESPIRATORY STATUS Naloxone HCl (Narcan) 0.1 mg IVPUSH ONETIME PRN PRN Reason: Respiratory Depression Naloxone HCl (Narcan) 0.1 mg IVPUSH ONETIME PRN PRN Reason: Oversedation Ondansetron HCl (Zofran) 4 mg IVPUSH Q4H PRN PRN Reason: N/V Promethazine HCl (Phenergan) 6.25 - 12.5 mg IV Q4H PRN PRN Reason: NAUSEA AND VOMITING Sodium Chloride (Saline Flush) 10 ml FLUSH ASDIRECTED PRN PRN Reason: Keep Vein Open Last Admin: 05/12/17 09:38 Dose: 10 ml Sodium Chloride (Saline Flush) 10 ml FLUSH ASDIRECTED PRN PRN Reason: Keep Vein Open Discontinued Medications Hydrocodone Bitart/Acetaminophen ([place] 325-5 Mg) 1 tab PO Q4H PRN PRN Reason: Pain Last Admin: 05/12/17 02:11 Dose: 1 tab Hydrocodone Bitart/Acetaminophen ([place] 325-5 Mg) Confirm Administered Dose 1 tab .ROUTE .STK-MED ONE Stop: 05/12/17 09:20 Last Admin: 05/12/17 10:18 Dose: Not Given Ampicillin Sodium (Ampicillin) Confirm Administered Dose 2,000 mg .ROUTE .STK- MED ONE Stop: 05/09/17 07:16 Last Admin: 05/09/17 07:33 Dose: Not Given Bisacodyl (Dulcolax) 10 mg RECTAL ONETIME ONE Stop: 05/10/17 18:43 Last Admin: 05/10/17 19:07 Dose: 10 mg Citric Acid/Sodium Citrate (Bicitra Solution) 30 ml PO ONETIME ONE Stop: 05/09/17 18:22 Last Admin: 05/09/17 18:37 Dose: 30 ml Citric Acid/Sodium Citrate (Bicitra Solution) Confirm Administered Dose 30 ml .ROUTE .STK-MED ONE Stop: 05/09/17 18:33 Last Admin: 05/09/17 20:49 Dose: Not Given Dexamethasone (Dexamethasone) 8 mg IVPUSH .STK-MED ONE Stop: 05/09/17 18:53 Diphenhydramine HCl (Benadryl) 25 mg IVPUSH ASDIRECTED PRN PRN Reason: PRURITUS Ephedrine Sulfate (Ephedrine Sulfate) 5 mg IVPUSH ASDIRECTED PRN PRN Reason: HYPOTENSION Fentanyl (Sublimaze) 100 mcg EPIDUR .STK-MED ONE Stop: 05/09/17 09:16 Fentanyl (Sublimaze) 100 mcg IV .STK-MED ONE Stop: 05/09/17 18:53 Lactated Ringer's (Ringers, Lactated) 1,000 mls @ 75 mls/hr IV ASDIRECTED BELKIS Stop: 05/11/17 07:40 Last Admin: 05/10/17 08:57 Dose: 75 mls/hr Oxytocin/Sodium Chloride (Pitocin In Ns 10 Units/1,000 Ml) 10 unit in 1,000 mls @ 12 mls/hr IV TITRATE BELKIS; 2 MUNITS/MIN PRN Reason: Protocol Last Titration: 05/09/17 11:43 Dose: 0 munits/min, 0 mls/hr Ampicillin Sodium 2 gm/ Sodium (Chloride) 100 mls @ 200 mls/hr IV ONETIME ONE Stop: 05/09/17 07:43 Last Admin: 05/09/17 07:28 Dose: 200 mls/hr Ampicillin Sodium 1,000 mg/ (Sodium Chloride) 50 mls @ 100 mls/hr IV Q4H BELKIS Last Admin: 05/09/17 18:42 Dose: 100 mls/hr Naloxone HCl 0.4 mg/ Sodium (Chloride) 101 mls @ 25 mls/hr IV ASDIRECTED PRN PRN Reason: PER ORDER OF ANESTHESIA Fentanyl 100 mcg/ Ropivacaine 202 mls @ as directed EPIDUR .STK-MED ONE Stop: 05/09/17 09:16 Ibuprofen (Motrin) 600 mg PO Q6H PRN PRN Reason: Pain Last Admin: 05/12/17 06:30 Dose: 600 mg Ibuprofen (Motrin) Confirm Administered Dose 600 mg .ROUTE .STK-MED ONE Stop: 05/12/17 09:22 Last Admin: 05/12/17 10:19 Dose: Not Given Ketorolac Tromethamine (Toradol) 15 mg IVPUSH Q6H PRN PRN Reason: Pain Stop: 05/14/17 19:57 Last Admin: 05/10/17 11:15 Dose: 15 mg Ketorolac Tromethamine (Toradol) 30 mg IVPUSH Q6H PRN PRN Reason: Pain Stop: 05/15/17 18:42 Last Admin: 05/11/17 01:58 Dose: 30 mg Ketorolac Tromethamine (Toradol) 30 mg IVPUSH .STK-MED ONE Stop: 05/09/17 18:53 Lidocaine HCl (Xylocaine-Mpf 2% (Sterile-Jerrell)) 20 ml INJECT .STK-MED ONE Stop: 05/09/17 18:53 Misoprostol (Cytotec) 25 mcg VAG ONETIME ONE Stop: 05/08/17 10:20 Last Admin: 05/08/17 11:04 Dose: 25 mcg Morphine Sulfate (Morphine) 4 mg IVPUSH ONETIME ONE Stop: 05/12/17 09:06 Last Admin: 05/12/17 09:27 Dose: 4 mg Morphine Sulfate (Morphine) Confirm Administered Dose 4 mg .ROUTE .STK-MED ONE Stop: 05/12/17 09:18 Last Admin: 05/12/17 10:17 Dose: Not Given Morphine Sulfate (Duramorph Pf) 3 mg EPIDUR .STK-MED ONE Stop: 05/09/17 18:53 Ondansetron HCl (Zofran) 4 mg IVPUSH Q6H PRN PRN Reason: Nausea/Vomiting Ondansetron HCl (Zofran) 4 mg IVPUSH .STK-MED ONE Stop: 05/09/17 18:53 Oxytocin (Pitocin) 20 unit IV .STK-MED ONE Stop: 05/09/17 18:53 Scopolamine (Transderm-Scop) 1.5 mg TOP ONETIME ONE Stop: 05/09/17 18:24 Last Admin: 05/09/17 18:37 Dose: 1.5 mg Scopolamine (Transderm-Scop) Confirm Administered Dose 1.5 mg .ROUTE .STK-MED ONE Stop: 05/09/17 18:32 Last Admin: 05/09/17 18:35 Dose: Not Given - Interaction Infant Disposition, : in Room with Family Support Person: - Recovery Exam Fundal Tone: Firm Fundal Level: At Umbilicus Fundal Placement: Midline Lochia Amount: Small Lochia Color: Rubra/Red Perineum Description: Edematous Episiotomy/Laceration: None Bladder Status: Voiding Urinary Elimination: Voided - Exam General: Alert, Oriented, No Acute Distress Lungs: Clear to Auscultation, Normal Respiratory Effort Cardiovascular: Regular Rate, Regular Rhythm GI/Abdominal Exam: Normal Bowel Sounds, Soft Wound/Incisions: Healing Well - Problem List & Annotations (1) S/P section SNOMED Code(s): 872773608 Code(s): Z98.891 - HISTORY OF UTERINE SCAR FROM PREVIOUS SURGERY Status: Acute Current Visit: Yes (2) Post-operative pain SNOMED Code(s): 853884977 Code(s): G89.18 - OTHER ACUTE POSTPROCEDURAL PAIN Status: Acute Current Visit: Yes - Problem List Review Problem List Initiated/Reviewed/Updated: Yes - My Orders Last 24 Hours: My Active Orders 05/12/17 09:04 Sodium Chloride 0.9% [Saline Flush] 10 ml FLUSH ASDIRECTED PRN Saline Lock Insert [OM.PC] Routine 05/12/17 09:05 Acetaminophen/HYDROcodone [[place] 325-5 MG] 2 tab PO Q4H PRN 05/12/17 09:15 Acetaminophen/HYDROcodone [[place] 325-5 MG] 1 tab PO Q4H 05/12/17 12:30 Ibuprofen [Motrin] 600 mg PO Q6H - Assessment Assessment:: POD#4 ready for discharge - Plan Plan:: d/c to home
--- NOTE | 2017-05-13 07:38 | PCM.DCSUM1 ---
Discharge Summary - Hospital Course Free Text/Narrative:: Pt was admitted and taken to the OR for failure to progress. Normal term infant was delivered. Started on a diet the next day. This was advanced to regular. she did have a bowel movement as well. Post operative course was signficant for poorly controlled pain. This was controlled with a more aggressive dosing schedule. She is now well enough to be discharged home. - Discharge Data Discharge Date: 05/13/17 Discharge Disposition: Home, Self-Care 01 Condition: Good - Discharge Diagnosis/Problem(s) (1) S/P section SNOMED Code(s): 832888451 ICD Code: Z98.891 - HISTORY OF UTERINE SCAR FROM PREVIOUS SURGERY Status: Acute Current Visit: Yes (2) Post-operative pain SNOMED Code(s): 003273434 ICD Code: G89.18 - OTHER ACUTE POSTPROCEDURAL PAIN Status: Acute Current Visit: Yes - Patient Summary/Data Operative Procedure(s) Performed: c section - Patient Instructions Diet: Usual Diet as Tolerated Activity: No Lifting Over 25 Pounds, No Strenuous Activities Driving: Do Not Drive (for 7d ays ) Showering/Bathing: May Shower Wound/Incision, Other: pat area dry do not scrub the wound Notify Provider of: Fever, Swelling and Redness, Drainage - Discharge Plan Home Medications: Home Meds Pnv No.95/Ferrous Fum/Folic AC [ Multivitamin Tablet] 1 each PO DAILY [History] Patient Handouts: , Depression and Baby Blues, Delivery, Care After, Care After Delivery, Challenges and Solutions, Hand Washing Referrals: Lex Perez MD [Physician] - (in about a week.) - Discharge Summary/Plan Comment DC Time >30 min.: No - Patient Data Vitals - Most Recent: Last Vital Signs Temp 36.6 C 05/13/17 00:15 Pulse 71 05/13/17 00:15 Resp 18 05/13/17 00:15 BP 96/64 05/13/17 00:15 Pulse Ox 98 05/13/17 00:15 Weight - Most Recent: 87.997 kg Med Orders - Current: Current Medications Hydrocodone Bitart/Acetaminophen ([place] 325-5 Mg) 2 tab PO Q4H PRN PRN Reason: Pain Last Admin: 05/13/17 05:03 Dose: 2 tab Hydrocodone Bitart/Acetaminophen ([place] 325-5 Mg) 1 tab PO Q4H [facility] Last Admin: 05/13/17 05:04 Dose: Not Given Diphenhydramine HCl (Benadryl) 25 mg IVPUSH Q6H PRN PRN Reason: Itching or Nausea Last Admin: 05/10/17 21:27 Dose: 25 mg Diphenhydramine HCl (Benadryl) 25 mg IV ONETIME PRN PRN Reason: Pruritus Hydroxyzine HCl (Vistaril) 0 mg IM Q6H PRN PRN Reason: PRURITIS Last Admin: 05/10/17 12:09 Dose: 25 mg Hydroxyzine HCl (Vistaril) 0 mg IM Q4H PRN PRN Reason: N/V Ibuprofen (Motrin) 600 mg PO Q6H BELK[facility] Last Admin: 05/13/17 06:22 Dose: 600 mg Morphine Sulfate (Morphine) 2 mg IVPUSH Q1H PRN PRN Reason: Pain Last Admin: 05/10/17 20:24 Dose: 2 mg Nalbuphine HCl (Nubain) 10 mg IVPUSH Q1H PRN PRN Reason: Pruritus Naloxone HCl (Narcan) 0.1 mg IVPUSH ASDIRECTED PRN PRN Reason: RESPIRATORY STATUS Naloxone HCl (Narcan) 0.1 mg IVPUSH ONETIME PRN PRN Reason: Respiratory Depression Naloxone HCl (Narcan) 0.1 mg IVPUSH ONETIME PRN PRN Reason: Oversedation Ondansetron HCl (Zofran) 4 mg IVPUSH Q4H PRN PRN Reason: N/V Promethazine HCl (Phenergan) 6.25 - 12.5 mg IV Q4H PRN PRN Reason: NAUSEA AND VOMITING Sodium Chloride (Saline Flush) 10 ml FLUSH ASDIRECTED PRN PRN Reason: Keep Vein Open Last Admin: 05/12/17 09:38 Dose: 10 ml Sodium Chloride (Saline Flush) 10 ml FLUSH ASDIRECTED PRN PRN Reason: Keep Vein Open Discontinued Medications Hydrocodone Bitart/Acetaminophen ([place] 325-5 Mg) 1 tab PO Q4H PRN PRN Reason: Pain Last Admin: 05/12/17 02:11 Dose: 1 tab Hydrocodone Bitart/Acetaminophen ([place] 325-5 Mg) Confirm Administered Dose 1 tab .ROUTE .STK-MED ONE Stop: 05/12/17 09:20 Last Admin: 05/12/17 10:18 Dose: Not Given Ampicillin Sodium (Ampicillin) Confirm Administered Dose 2,000 mg .ROUTE .STK- MED ONE Stop: 05/09/17 07:16 Last Admin: 05/09/17 07:33 Dose: Not Given Bisacodyl (Dulcolax) 10 mg RECTAL ONETIME ONE Stop: 05/10/17 18:43 Last Admin: 05/10/17 19:07 Dose: 10 mg Citric Acid/Sodium Citrate (Bicitra Solution) 30 ml PO ONETIME ONE Stop: 05/09/17 18:22 Last Admin: 05/09/17 18:37 Dose: 30 ml Citric Acid/Sodium Citrate (Bicitra Solution) Confirm Administered Dose 30 ml .ROUTE .STK-MED ONE Stop: 05/09/17 18:33 Last Admin: 05/09/17 20:49 Dose: Not Given Dexamethasone (Dexamethasone) 8 mg IVPUSH .STK-MED ONE Stop: 05/09/17 18:53 Diphenhydramine HCl (Benadryl) 25 mg IVPUSH ASDIRECTED PRN PRN Reason: PRURITUS Ephedrine Sulfate (Ephedrine Sulfate) 5 mg IVPUSH ASDIRECTED PRN PRN Reason: HYPOTENSION Fentanyl (Sublimaze) 100 mcg EPIDUR .STK-MED ONE Stop: 05/09/17 09:16 Fentanyl (Sublimaze) 100 mcg IV .STK-MED ONE Stop: 05/09/17 18:53 Lactated Ringer's (Ringers, Lactated) 1,000 mls @ 75 mls/hr IV ASDIRECTED BELKIS Stop: 05/11/17 07:40 Last Admin: 05/10/17 08:57 Dose: 75 mls/hr Oxytocin/Sodium Chloride (Pitocin In Ns 10 Units/1,000 Ml) 10 unit in 1,000 mls @ 12 mls/hr IV TITRATE BELKIS; 2 MUNITS/MIN PRN Reason: Protocol Last Titration: 05/09/17 11:43 Dose: 0 munits/min, 0 mls/hr Ampicillin Sodium 2 gm/ Sodium (Chloride) 100 mls @ 200 mls/hr IV ONETIME ONE Stop: 05/09/17 07:43 Last Admin: 05/09/17 07:28 Dose: 200 mls/hr Ampicillin Sodium 1,000 mg/ (Sodium Chloride) 50 mls @ 100 mls/hr IV Q4H BELK[facility] Last Admin: 05/09/17 18:42 Dose: 100 mls/hr Naloxone HCl 0.4 mg/ Sodium (Chloride) 101 mls @ 25 mls/hr IV ASDIRECTED PRN PRN Reason: PER ORDER OF ANESTHESIA Fentanyl 100 mcg/ Ropivacaine 202 mls @ as directed EPIDUR .STK-MED ONE Stop: 05/09/17 09:16 Ibuprofen (Motrin) 600 mg PO Q6H PRN PRN Reason: Pain Last Admin: 05/12/17 06:30 Dose: 600 mg Ibuprofen (Motrin) Confirm Administered Dose 600 mg .ROUTE .STK-MED ONE Stop: 05/12/17 09:22 Last Admin: 05/12/17 10:19 Dose: Not Given Ketorolac Tromethamine (Toradol) 15 mg IVPUSH Q6H PRN PRN Reason: Pain Stop: 05/14/17 19:57 Last Admin: 05/10/17 11:15 Dose: 15 mg Ketorolac Tromethamine (Toradol) 30 mg IVPUSH Q6H PRN PRN Reason: Pain Stop: 05/15/17 18:42 Last Admin: 05/11/17 01:58 Dose: 30 mg Ketorolac Tromethamine (Toradol) 30 mg IVPUSH .STK-MED ONE Stop: 05/09/17 18:53 Lidocaine HCl (Xylocaine-Mpf 2% (Sterile-Jerrell)) 20 ml INJECT .STK-MED ONE Stop: 05/09/17 18:53 Misoprostol (Cytotec) 25 mcg VAG ONETIME ONE Stop: 05/08/17 10:20 Last Admin: 05/08/17 11:04 Dose: 25 mcg Morphine Sulfate (Morphine) 4 mg IVPUSH ONETIME ONE Stop: 05/12/17 09:06 Last Admin: 05/12/17 09:27 Dose: 4 mg Morphine Sulfate (Morphine) Confirm Administered Dose 4 mg .ROUTE .STK-MED ONE Stop: 05/12/17 09:18 Last Admin: 05/12/17 10:17 Dose: Not Given Morphine Sulfate (Duramorph Pf) 3 mg EPIDUR .STK-MED ONE Stop: 05/09/17 18:53 Ondansetron HCl (Zofran) 4 mg IVPUSH Q6H PRN PRN Reason: Nausea/Vomiting Ondansetron HCl (Zofran) 4 mg IVPUSH .STK-MED ONE Stop: 05/09/17 18:53 Oxytocin (Pitocin) 20 unit IV .STK-MED ONE Stop: 05/09/17 18:53 Scopolamine (Transderm-Scop) 1.5 mg TOP ONETIME ONE Stop: 05/09/17 18:24 Last Admin: 05/09/17 18:37 Dose: 1.5 mg Scopolamine (Transderm-Scop) Confirm Administered Dose 1.5 mg .ROUTE .STK-MED ONE Stop: 05/09/17 18:32 Last Admin: 05/09/17 18:35 Dose: Not Given *Q Meaningful Use (DIS) - VTE *Q VTE Criteria *Q: - Stroke *Q Stroke Criteria *Q: - AMI *Q AMI Criteria *Q:
[2017-05-13] MEDS ORDERED: Bisacodyl 10 MG Supp RECTAL ONE (07:40)
== END 2017-05-13 10:20 | disposition home or self-care (01) | DRG 540 ==
LOC: FB.OB 09:51 → OBSVTOIN 18:00 → FB.OB 18:00
PROVIDERS: ADMIT Family Medicine; ATTEND Family Medicine
PROC: 3E0P7VZ Introduction of Hormone into Female Reproductive, Via Natural or Artificial Opening (ICD-10-PCS; 2017-05-08)
PROC: 3E033VJ Introduction of Other Hormone into Peripheral Vein, Percutaneous Approach (ICD-10-PCS; 2017-05-08)
PROC: 10907ZC Drainage of Amniotic Fluid, Therapeutic from Products of Conception, Via Natural or Artificial Opening (ICD-10-PCS; 2017-05-08)
PROC: 10D00Z1 Extraction of Products of Conception, Low, Open Approach (ICD-10-PCS; principal; 2017-05-09)
PROC: 6A550ZT Pheresis of Cord Blood Stem Cells, Single (ICD-10-PCS; 2017-05-09)
DX: O76 Abnormality in fetal heart rate and rhythm complicating labor and delivery (principal); O99.824 Streptococcus B carrier state complicating childbirth; O66.5 Attempted application of vacuum extractor and forceps; O61.0 Failed medical induction of labor; O69.81X0 Labor and delivery complicated by cord around neck, without compression, not applicable or unspecified; O62.2 Other uterine inertia; Z3A.40 40 weeks gestation of pregnancy; Z37.0 Single live birth; G89.18 Other acute postprocedural pain
CPT/HCPCS: 36415; 51701; 51702; 85025; 86850; 86900; 86901; A9270-GY; J0290; J1100; J1200; J1885; J2270; J2405; J2590; J2795; J3010; J3410; J7030; J7050; J7120

== ENCOUNTER 2017-05-14 04:10 | Emergency (ER) | payer BC ==
--- NOTE | 2017-05-15 16:14 | ER ---
DATE SEEN: 05/14/2017 TIME SEEN: The patient was seen at 0420 hours. HISTORY OF PRESENT ILLNESS: The patient is 5th day postop for , 1, para 1, woman who "per Dr. Perez, surgeon, postop course was significant for poorly controlled pain." The patient is in tears today because she has pain to the left of her incision and she complains of burning in that site. She is passing urine. No fevers or chills. No cough. She has had a bowel movement. She is taking pain medications every 4 hours hydrocodone, [place] 5/325 mg 1-2 tablets every 6 hours p.r.n. and she still has pain. She has had one bowel movement yesterday at day 4. Otherwise none. She is not using any Colace, although has been prescribed for her 100 mg b.i.d. (at least she states she has not used it). The patient's otherwise health history is relatively negative, pre Pitocin with epidural, group B positive and had ampicillin per protocol preoperatively. for failure to progress and labor induction. The patient has had a . MEDICATIONS: 1. vitamins. 2. Ibuprofen. 3. Colace. 4. [place] 5/325 mg. ALLERGIES: None. SOCIAL STATUS: . PHYSICAL EXAMINATION: VITAL SIGNS: Blood pressure 123/83, heart rate 70, respirations 18, oxygen saturation 100%, temperature is 36.2 degrees centigrade. GENERAL: Alert woman in tears, complaining about pain to the left of her Pfannenstiel incision. She states that she experienced burning. She states she cannot walk because of the pain and it hurts so much but she did walk into the ED. HEENT: PERRLA intact. Pharynx without abnormality. NECK: Supple. No thyromegaly or masses in neck. LUNGS: Clear without rales, rhonchi, or wheezes. HEART: S1, S2. No murmur. No irregular rate and rhythm. ABDOMEN: Soft. Bowel sounds normal. No rebound. Moderate voluntary guarding. No tinkles. No distention. No bloating. No tympany. EXTREMITIES: Heel jar test is negative. [id number] discomfort to the Pfannenstiel incision, left lower quadrant. RECTAL: Not performed. ASSESSMENT AND PLAN: Usual postoperative pain, not unusual to have ilioinguinal or iliohypogastric superficial branches or nerves that contiguous to the incision resulting in mild dysesthesia and/or hypoesthesia. The incision is clean, healed and doing well. No sign of infection. No mass or induration associated to the side or para-incisional changes to suggest a seroma. There is no drainage. The patient's wound is clean. I do not believe she has complications with C- section, but she has pain. Postop course was significant for "poor control of pain "per her surgeon." It is my impression that she did probably stay in the hospital longer than usual, but I am not sure if this was because of the pain. I had the patient get up and walk. She cried loudly. She said she could not do that, but she did walk to the hallway and the crying stopped and I had her go from a lean in a truncal flexion to stand up with more extension to redistribute the weight in her hips and center of gravity. With this different posture she complained of pain, but then all of a sudden stopped complaining, stopped crying and she was able to walk with some difficulty. But she walked with out d crying exclaiming how sore she was.. I told her as an alternative we could perform an ultrasound and then after I thought about the ultrasound would result in limited information, probably a CAT scan would be more helpful. Once the echo technologist arrived, he explained the advantages of CAT scan versus ultrasound. The patient was surprised because she wanted to have an ultrasound. At this point, the patient declined the CAT scan and she left AMA. I talked at length about ways to manage her pain using a reframing technique. In spite of this discussion. I felt that there was limited receptivity to trying to approach. (I note this probably would relieve her pain by factor of 50% a technique to shift the anxiety stress from irrational thinking in the left lobe of the brain to the right-sided brain. was moderately passive. I did relate to him and apologized that they should have so pain and asked if there is anything else I could do for them. I chose not to give an intramuscular injection or prescribe any more narcotics as she has had 1 or 2 pills of the narcotics left at home. DIAGNOSIS: Postoperative pain, most likely myofascial etiology /[id number] SONG/MARIA ISABEL BARBER
== END 2017-05-14 05:45 | disposition home or self-care (01) ==
LOC: FB.ED 04:10
DX: O90.89 Other complications of the puerperium, not elsewhere classified (principal); G89.18 Other acute postprocedural pain; R20.8 Other disturbances of skin sensation
CPT/HCPCS: 99282

== ENCOUNTER 2022-07-18 22:28 | Emergency (ER) | payer BC ==
[2022-07-18] MEDS ORDERED: hydrOXYzine HCl 50 MG/ML SDV IM ONE (22:56)
== END 2022-07-19 00:05 | disposition home or self-care (01) ==
LOC: FB.ED 22:28
DX: F41.9 Anxiety disorder, unspecified (principal)
CPT/HCPCS: 96372; 99284; J3410; 99283

== ENCOUNTER 2023-06-14 19:34 | Emergency (ER) | payer BC ==
[2023-06-14] MEDS: Sodium Chloride 0.9% 10 ML Syringe FLUSH PRN (19:49)
[2023-06-14] MEDS: Sodium Chloride 0.9% 1,000 ML IV ONE (19:50)
[2023-06-14] MEDS: Promethazine 25 MG in Sodium Chloride 0.9% 50 ML IV ONE (19:56)
[2023-06-14 20:00] LABS: BASOPHILS PERCENT AUTO 0.1 % (0.2-1.5); EOSINOPHILS ABSOLUTE AUTO 0.1 x10-3/uL (0.0-0.8); HEMATOCRIT 40.6 % (34.2-48.2); HEMOGLOBIN 14.4 g/dL (11.4-15.5); LYMPHOCYTES ABSOLUTE AUTO 1.5 x10-3/uL (1.0-4.4); LYMPHOCYTES PERCENT AUTO 9.9 % (18.4-52.1); MEAN CORPUSCULAR HEMOGLOBIN 31.4 pg (23.9-33.9); MEAN CORPUSCULAR HGB CONC 35.4 g/dL (31.9-34.8); MEAN CORPUSCULAR VOLUME 88.7 fL (76.7-100.5); MEAN PLATELET VOLUME 6.7 fL (7.1-12.4); MONOCYTES ABSOLUTE AUTO 0.6 x10-3/uL (0.3-1.0); MONOCYTES PERCENT AUTO 4.4 % (4.4-15.7); NEUTROPHILS ABSOLUTE AUTO 12.5 x10-3/uL (1.5-6.3); NEUTROPHILS PERCENT AUTO 84.6 % (30.8-76.2); PLATELET COUNT,PLT 286 x10(3)uL (151-488); RED BLOOD CELL COUNT 4.57 x10(6)uL (3.60-5.20); RED CELL DISTRIBUTION WIDTH 13.1 % (12.3-16.5); WHITE BLOOD CELL COUNT,WBC 14.8 x10-3/uL (3.0-10.3)
[2023-06-14 20:03] LABS: BLOOD UREA NITROGEN,BUN 17 mg/dL (7-18); BUN/CREATININE RATIO 28.3 (9-20); CALCIUM 8.8 mg/dL (8.6-10.2); CARBON DIOXIDE,CO2 26 mmol/L (21-32); CHLORIDE,CL 99 mmol/L (100-110); CREATININE 0.6 mg/dL (0.55-1.02); EST CRCL DRUG DOSING (CG) 118.39 mL/min; ESTIMATED GFR 124 mL/min (>60); GLUCOSE RANDOM 92 mg/dL (80-116); POTASSIUM,K 3.8 mmol/L (3.5-5.3); SODIUM,NA 136 mmol/L (135-145)
[2023-06-14 20:09] LABS: A/G RATIO 0.8; ALANINE AMINOTRANSFERASE,ALT 36 U/L (12-36); ALBUMIN 3.4 g/dL (3.5-5.2); ALKALINE PHOSPHATASE 69 IU/L (56-112); ASPARTATE AMNIOTRANSFERASE,AST 25 IU/L (5-25); BILIRUBIN TOTAL 0.3 mg/dL (0.1-1.3); MAGNESIUM 2.1 mg/dL (1.8-2.5); PROTEIN TOTAL,TP 7.6 g/dL (6.0-8.0)
== END 2023-06-14 20:58 | disposition home or self-care (01) ==
LOC: FB.ED 19:34
DX: O21.1 Hyperemesis gravidarum with metabolic disturbance (principal); Z79.899 Other long term (current) drug therapy; Z3A.10 10 weeks gestation of pregnancy
CPT/HCPCS: 80053; 83735; 85025; 96361; 96365; 99283; 99284-25; J2550; J3490; J7030

== ENCOUNTER 2024-02-05 19:27 | Emergency (ER) | payer BC | END 2024-02-05 20:41 | disposition home or self-care (01) | LOC: FB.ED 19:27 | DX: S93.402A Sprain of unspecified ligament of left ankle, initial encounter (principal); X50.9XXA Other and unspecified overexertion or strenuous movements or postures, initial encounter | CPT/HCPCS: 73610-LT; 99283 ==

== ENCOUNTER 2024-07-12 19:03 | Emergency (ER) | payer BC | END 2024-07-12 19:38 | disposition home or self-care (01) | LOC: FB.ED 19:03 | DX: S61.411A Laceration without foreign body of right hand, initial encounter (principal); Z79.899 Other long term (current) drug therapy; W26.9XXA Contact with unspecified sharp object(s), initial encounter | CPT/HCPCS: 12001; 99282 ==

== ENCOUNTER 2024-09-23 06:18 | Day surgery (SDC) | payer BC ==
[~2024-09-23 06:18] MED LIST: Sodium Chloride 0.9% 10 ML Syringe FLUSH PRN
[2024-09-23] MEDS ORDERED: Propofol 200 MG/20 ML SDV IV ONE (06:19)
[2024-09-23] MEDS ORDERED: Midazolam 1 MG/ML 2 ML SDV IV ONE (06:19)
[2024-09-23] MEDS ORDERED: Lidocaine 2% 100 MG/5 ML Syringe IVPUSH ONE (06:19)
[2024-09-23] MEDS: Lactated Ringers 1,000 ML IV SCH (06:56)
[2024-09-23] MEDS: Simethicone Drops 40 MG/0.6 ML 30 ML Bottle ONE (07:32)
== END 2024-09-23 09:10 | disposition home or self-care (01) ==
LOC: FB.SDS 06:18
PROVIDERS: ATTEND Surgery
DX: K63.89 Other specified diseases of intestine (principal); K59.00 Constipation, unspecified; Z80.0 Family history of malignant neoplasm of digestive organs; Z79.899 Other long term (current) drug therapy
CPT/HCPCS: 00811; 88305; A9270-GY; J2250; J2704; J7120